=== PATIENT | female | born 1965 | race Caucasian/White ===

== ENCOUNTER 2016-04-09 21:06 | Emergency (ER) | payer OTHER ==
[~2016-04-09] VITALS: Ht 157.5 cm; Wt 82.0 kg
[2016-04-09 21:13] VITALS: Ht 157.5 cm; Wt 82.0 kg
[2016-04-09] MEDS ORDERED: PHENAZOPYRIDINE 100 MG TAB PO ONE (22:30)
[2016-04-09] MEDS ORDERED: HYDROCODONE/APAP (5/325) TAB PO ONE (22:30)
[2016-04-09 22:43] LABS: URINE BLOOD (Dip) POC 2+ (NEGATIVE)
[2016-04-09] MEDS ORDERED: CEFTRIAXONE 1 GM INJ IM ONE (23:00)
[2016-04-09] MEDS ORDERED: LIDOCAINE 1% (MDV) 20 ML INJ SC ONE (23:00)
[2016-04-09] MEDS ORDERED: CIPR500T4 PO (23:25)
[2016-04-09] MEDS ORDERED: HYDR-906 PO (23:25)
[2016-04-09] MEDS ORDERED: PHEN-537 PO (23:25)
--- NOTE | 2016-04-09 23:33 | ERD ---
ER Documentation Chief Complaint Date/Time DATE: 04/09/16 TIME: 23:31 Chief Complaint painful/burning urination x 2 days HPI This is a 50-year-old female presents to the ER with urinary frequency and burning for the last 2 days. Patient also complaining of pain over her bladder. She does admit to chills. She denies fevers. She admits to nausea. She is also complaining of left-sided back pain. Patient denies any hematuria. She denies any trauma to the back. ROS 12 point review of systems was done, all negative except per HPI. Medications Home Meds Active Scripts Hydrocodone/Acetaminophen (Hollywood 5-325 Tablet) 1 Each Tablet, 1 TAB PO Q6H Y for PAIN, #10 TAB Prov:JOSE G SIM C 04/09/16 Phenazopyridine Hcl* (Pyridium*) 100 Mg Tab, 100 MG PO TID Y for URINARY PAIN, # 8 TAB Prov:JENN SIMNA C 04/09/16 Ciprofloxacin Hcl* (Ciprofloxacin Hcl*) 500 Mg Tablet, 500 MG PO BID for 10 Days , TAB Prov:JOSE G SIM C 04/09/16 Allergies Allergies: Coded Allergies: aspirin (Verified Allergy, Unknown, swelling, 04/09/16) PMhx/Soc History of Surgery: Yes (HYSTERECTOMY, BLADDER SX, ) Anesthesia Reaction: No Hx Neurological Disorder: No Hx Respiratory Disorders: No Hx Cardiac Disorders: Yes (HTN) Hx Miscellaneous Medical Probl: Yes (DM ) Hx Alcohol Use: No Hx Substance Use: No Hx Tobacco Use: No Smoking Status: Never smoker Physical Exam Vitals Vital Signs Date Time Temp Pulse Resp B/P Pulse Ox O2 Delivery O2 Flow Rate FiO2 04/09/16 21:13 99.0 101 20 132/77 100 Physical Exam GENERAL: The patient is well developed and appropriate for usual state of health , in no apparent distress. HEENT: Atraumatic. CHEST: Clear to auscultation bilaterally. There are no rales, wheezes or rhonchi. HEART: Regular rate and rhythm. No murmurs, clicks, rubs or gallops. ABDOMEN: Soft, nontender and nondistended. Good bowel sounds. No rebound or guarding. No gross peritonitis. No gross organomegaly or masses. No Alexandra sign or McBurney point tenderness. BACK: No midline or flank tenderness. NEURO: Alert and oriented. Results 24 hrs Laboratory Tests Test 04/09/16 22:45 Bedside Urine Blood 2+ Bedside Urine Glucose (UA) Negative Bedside Urine Ketones (LAB) Negative Bedside Urine Leukocyte Esterase (L 2+ Bedside Urine Nitrite (LAB) Positive Bedside Urine Protein (LAB) 1+ Bedside Urine pH (LAB) 6.0 Current Medications Medications (Trade) Dose Ordered Sig/Larissa Route PRN Reason Start Time Stop Time Status Last Admin Dose Admin Phenazopyridine HCl (Pyridium) 100 mg ONCE ONCE PO 04/09/16 22:30 04/09/16 22:31 DC 04/09/16 23:03 Acetaminophen/ Hydrocodone Bitart (Hollywood (5/325)) 1 tab ONCE ONCE PO 04/09/16 22:30 04/09/16 22:31 DC 04/09/16 23:03 Ceftriaxone Sodium (Rocephin) 1 gm ONCE ONCE IM 04/09/16 23:00 04/09/16 23:01 DC 04/09/16 23:02 Lidocaine (Xylocaine 1% (Mdv) 20 ml) 20 ml ONCE ONCE SC 04/09/16 23:00 04/09/16 23:01 DC 04/09/16 23:02 Procedures/MDM This is a 50-year-old female presents to the ER with urinary frequency and dysuria. Patient did have a significant urinary tract infection on urinalysis. Patient was given a shot of Rocephin as she did have some left-sided back pain. She did have chills and nausea patient may be developing pyelonephritis. Patient is afebrile and well-appearing. [facility] Patient is to follow-up with her primary care doctor within 1-2 days or return to ER sooner if symptoms worsen. By medical decision making sure with the patient she understands and agrees with plan Departure Diagnosis: Primary Impression: UTI (urinary tract infection) Condition: Stable Patient Instructions: Understanding Urinary Tract Infections (UTIs) Additional Instructions: Call your primary care doctor TOMORROW for an appointment during the next 1-2 days.See the doctor sooner or return here if your condition worsens before your appointment time. JOSE G SIM Apr 09, 2016 23:33
[2016-04-09 23:37] VITALS: BP 122/64; PULSE 78; RESP 16; TEMP 98.7
== END 2016-04-09 23:39 | disposition home or self-care (01) ==
LOC: FTE 21:06
DX: N39.0 Urinary tract infection, site not specified (principal); I10 Essential (primary) hypertension; E11.9 Type 2 diabetes mellitus without complications
CPT/HCPCS: 81003; 96372; J0696; Z7502; Z7610

== ENCOUNTER 2016-07-14 10:21 | Emergency (ER) | payer OTHER ==
[~2016-07-14] VITALS: Ht 157.5 cm; Wt 79.0 kg
[~2016-07-14 10:21] MED LIST: CIPR500T4 PO; HYDR-906 PO; PHEN-537 PO
[2016-07-14 10:24] VITALS: Ht 157.5 cm; Wt 79.0 kg
[2016-07-14] MEDS ORDERED: ONDANSETRON (ODT) 4 MG TAB ODT STA (10:56)
[2016-07-14] MEDS ORDERED: HYDROCODONE/APAP (5/325) TAB PO ONE (11:00)
[2016-07-14 11:05] LABS: URINE BLOOD (Dip) POC 3+ (NEGATIVE)
[2016-07-14] MEDS ORDERED: NITR-58 PO (11:48)
[2016-07-14] MEDS ORDERED: HYDR-906 PO (11:48)
--- NOTE | 2016-07-14 11:54 | ERD ---
ER Documentation Chief Complaint Date/Time DATE: 07/14/16 TIME: 11:49 Chief Complaint VB DYSURIA X 1 DAY HPI Patient is a 51-year-old female with a past medical history of diabetes, hypertension, migraine headaches, who presents emergency department with dysuria and a headache 1 day. Patient states she has burning pain with urination. Patient also states that her urine appears darker than usual. Patient does report frequency and urgency. Patient reports localized tenderness to the suprapubic region. Patient denies any fevers, chills, back pain, flank pain or vomiting. Patient also states that she is having a headache. Patient states that she did take her Imitrex yesterday however did not help. Patient states that her current headache does feel like previous headaches. Patient states that her pain has been getting gradually worse. Patient denies any sudden onset of pain. Patient does report nausea however she denies any vomiting. Patient also admits to photophobia and phonophobia. Patient denies any blurry vision, neck stiffness, neck pain or loss of consciousness. No recent trauma or falls. Patient is speaking full sentences. ROS All systems reviewed and are negative except as per history of present illness. Medications Home Meds Active Scripts Hydrocodone/Acetaminophen (Pierz 5-325 Tablet) 1 Each Tablet, 1 TAB PO Q6H Y for PAIN, #7 TAB Prov:DMITRY HELMS PA-C 07/14/16 Nitrofurantoin Monohyd Macrocr* (Macrobid*) 100 Mg Capsr, 100 MG PO BID for 5 Days, CAP Prov:DMITRY HELMS-Simona 07/14/16 Hydrocodone/Acetaminophen (Pierz 5-325 Tablet) 1 Each Tablet, 1 TAB PO Q6H Y for PAIN, #10 TAB Prov:JOSE G SIM 04/09/16 Phenazopyridine Hcl* (Pyridium*) 100 Mg Tab, 100 MG PO TID Y for URINARY PAIN, # 8 TAB Prov:JOSE G SIM C 04/09/16 Ciprofloxacin Hcl* (Ciprofloxacin Hcl*) 500 Mg Tablet, 500 MG PO BID for 10 Days , TAB Prov:JOSE G SIM C 04/09/16 Allergies Allergies: Coded Allergies: aspirin (Verified Allergy, Unknown, swelling, 07/14/16) PMhx/Soc History of Surgery: Yes (HYSTERECTOMY, BLADDER SX, ) Anesthesia Reaction: No Hx Neurological Disorder: No Hx Respiratory Disorders: No Hx Cardiac Disorders: Yes (HTN) Hx Miscellaneous Medical Probl: Yes (DM ) Hx Alcohol Use: No Hx Substance Use: No Hx Tobacco Use: No Smoking Status: Never smoker FmHx Family History: No diabetes Physical Exam Vitals Vital Signs Date Time Temp Pulse Resp B/P Pulse Ox O2 Delivery O2 Flow Rate FiO2 07/14/16 10:24 98.0 111 18 164/70 98 Physical Exam GENERAL: Well-developed, well-nourished female. Appears in no acute distress. HEAD: Normocephalic, atraumatic. EYES: Pupils are equally reactive bilaterally. EOMs grossly intact. No conjunctival erythema. ENT: Moist mucous membranes. No uvula deviation. No kissing tonsils. NECK: Supple. No meningismus. Normal range of motion of the neck. LUNG: Clear to auscultation bilaterally. No rhonchi, wheezing, rales or coarse breath sounds. HEART: Regular rate and rhythm. No murmurs, rubs or gallops. ABDOMEN: No scars, ecchymosis or rashes noted. Soft, nondistended. Tender to palpation in the suprapubic region. Positive bowel sounds in all four quadrants. No rebound tenderness, no guarding. (-) McBurney's point tenderness. No CVA tenderness. BACK: No midline tenderness. EXTREMITIES: Equal pulses bilaterally. No peripheral clubbing, cyanosis or edema. No unilateral leg swelling. SKIN: Normal color. Warm and dry. No rashes or lesions. NEUROLOGIC: Alert and oriented x3, cooperative. Mood and affect appropriate to situation. Cranial nerves II through XII are grossly intact. Normal speech. Motor exam: 5/5 strength in upper and lower extremities. Sensory exam: Sensation intact to light touch on all four extremities. Cerebellar function exam: No dysmetria on [id number] test. Steady gait. No pronator drift. Results 24 hrs Laboratory Tests Test 07/14/16 11:07 Bedside Urine pH (LAB) 5.5 Bedside Urine Protein (LAB) 1+ Bedside Urine Glucose (UA) 0.50% Bedside Urine Ketones (LAB) Negative Bedside Urine Blood 3+ Bedside Urine Nitrite (LAB) Negative Bedside Urine Leukocyte Esterase (L 2+ Current Medications Medications (Trade) Dose Ordered Sig/Larissa Route PRN Reason Start Time Stop Time Status Last Admin Dose Admin Acetaminophen/ Hydrocodone Bitart (Pierz (5/325)) 1 tab ONCE ONCE PO 07/14/16 11:00 07/14/16 11:01 DC 07/14/16 11:05 Ondansetron HCl (Zofran Odt) 4 mg ONCE STAT ODT 07/14/16 10:56 07/14/16 10:57 DC 07/14/16 11:06 Procedures/MDM MEDICAL DECISION MAKING: This is a 51-year-old female with a history of diabetes, hypertension, migraine headaches who presents to the emergency department with dysuria, frequency and urgency 1 day.. Vital signs were reviewed. Patient was afebrile. Urine dip showed 2+ leukocyte esterase and 3+ blood. Given these findings, the patient's presentation is most consistent with urinary tract infection. I have a much lower clinical concern for pyelonephritis, nephrolithiasis, appendicitis, diverticulitis, constipation, PID. Also patient stated she was having a migraine headache. Patient states she took her Imitrex with no alleviation of symptoms. She reported nausea, photophobia and phonophobia. Patient denies any blurry vision, loss of consciousness or trauma. Full neurological exam was normal. Patient requested pain medication here in the ED. Patient was given a Pierz as well as Zofran. Patient did report improvement in pain. At this time , the patient's presentation is most consistent with migraine headaches. Low suspicion for intracranial hemorrhage, intracranial mass, meningitis, encephalitis, temporal arteritis, benign intracranial hypertension, cluster headache. PRESCRIPTIONS: Macrobid, Pierz DISCHARGE: At this time, patient is stable for discharge and outpatient management. Patient advised to complete full course of antibiotics. I have encouraged the patient to hydrate well. I have instructed the patient to follow-up with his/ her primary care physician in 1-2 days. If symptoms persist, patient may need to see a specialist for further examinations and testing. I have instructed the patient to promptly return to the ER at any time for any new or worsening symptoms including increased increased pain, fever, nausea, vomiting, numbness, neck stiffness, visual changes, weakness or LOC. The patient and/or family expressed understanding of and agreement with this plan. All questions were answered. Home care instructions were provided. Departure Diagnosis: Primary Impression: UTI (urinary tract infection) Urinary tract infection type: site unspecified Hematuria presence: with hematuria Qualified Code: N39.0 - Urinary tract infection with hematuria, site unspecified Additional Impression: Migraine Migraine type: unspecified Status migrainosus presence: without status migrainosus Intractability: not intractable Qualified Code: G43.909 - Migraine without status migrainosus, not intractable, unspecified migraine type Condition: Stable Patient Instructions: Understanding Urinary Tract Infections (UTIs) Referrals: [facility] Additional Instructions: Call your primary care doctor TOMORROW for an appointment during the next 1-2 days.See the doctor sooner or return here if your condition worsens before your appointment time. DMITRY HELMS PA-C July 14, 2016 11:54 Additional Instructions: Call your primary care doctor TOMORROW for an appointment during the next 1-2 days.See the doctor sooner or return here if your condition worsens before your appointment time. DMITRY HELMS PA-C July 14, 2016 11:54
== END 2016-07-14 12:51 | disposition home or self-care (01) ==
LOC: FTE 10:21
DX: N39.0 Urinary tract infection, site not specified (principal); I10 Essential (primary) hypertension; E11.9 Type 2 diabetes mellitus without complications; G43.909 Migraine, unspecified, not intractable, without status migrainosus; R11.0 Nausea
CPT/HCPCS: 81003; Z7502; Z7610; 99284

== ENCOUNTER 2016-11-12 13:56 | Emergency (ER) | payer OTHER ==
[~2016-11-12] VITALS: Wt 91.0 kg
[~2016-11-12 13:56] MED LIST changes: +NITR-58 PO
[2016-11-12] MEDS ORDERED: KETOROLAC 30 MG INJ IM STA (14:21)
--- NOTE | 2016-11-12 14:51 | RADRPT ---
PROCEDURE: XR foot CLINICAL INDICATION: Pain and swelling. TECHNIQUE: AP, oblique and lateral views of the left foot were performed. COMPARISON: None. FINDINGS: There is normal mineralization and alignment. No fracture or osseous lesion is identified. The joint s are normal. Mild soft tissue swelling is present. There is no ankle effusion. IMPRESSION: No fracture, dislocation or osseous abnormality. Mild soft tissue swelling. RPTAT: PP. .Rachel Iverson MD, MD Date Time Electronically viewed and signed by .Rachel Iverson MD, MD on 11/12/2016 14:51 .F/
--- NOTE | 2016-11-12 14:53 | ERD ---
ER Documentation Chief Complaint Date/Time DATE: 11/12/16 TIME: 14:47 Chief Complaint FOOT PAIN SINCE THIS AM HPI This a 51-year-old female who presents the emergency department today complaining of left foot pain and swelling that started this morning when she woke up. Denies any trauma. States she does have a history of diabetes. She is she is taking Tylenol for pain but is having pain with walking. Denies any fevers or chills. ROS All systems reviewed and are negative except as per history of present illness. Medications Home Meds Active Scripts Naproxen* (Naprosyn*) 500 Mg Tablet, 500 MG PO BID Y for PAIN AND/OR INFLAMMATION, #30 TAB Prov:DUSTIN VERA PA-C 11/12/16 Tramadol HCl (Tramadol HCl) 50 Mg Tablet, 50 MG PO Q4 Y for PAIN, #20 TAB Prov:DUSTIN VERA PA-C 11/12/16 Hydrocodone/Acetaminophen (Snowshoe 5-325 Tablet) 1 Each Tablet, 1 TAB PO Q6H Y for PAIN, #7 TAB Prov:DMITRY HELMS PA-C 07/14/16 Nitrofurantoin Monohyd Macrocr* (Macrobid*) 100 Mg Capsr, 100 MG PO BID for 5 Days, CAP Prov:DMITRY HELMS PA-C 07/14/16 Hydrocodone/Acetaminophen (Snowshoe 5-325 Tablet) 1 Each Tablet, 1 TAB PO Q6H Y for PAIN, #10 TAB Prov:JOSE G SIM 04/09/16 Phenazopyridine Hcl* (Pyridium*) 100 Mg Tab, 100 MG PO TID Y for URINARY PAIN, # 8 TAB Prov:JOSE G SIM 04/09/16 Ciprofloxacin Hcl* (Ciprofloxacin Hcl*) 500 Mg Tablet, 500 MG PO BID for 10 Days , TAB Prov:JOSE G SIM 04/09/16 Allergies Allergies: Coded Allergies: aspirin (Verified Allergy, Unknown, swelling, 07/14/16) PMhx/Soc History of Surgery: Yes (HYSTERECTOMY, BLADDER SX, ) Anesthesia Reaction: No Hx Neurological Disorder: No Hx Respiratory Disorders: No Hx Cardiac Disorders: Yes (HTN) Hx Miscellaneous Medical Probl: Yes (DM, Migraines) Hx Alcohol Use: No Hx Substance Use: No Hx Tobacco Use: No Smoking Status: Never smoker Physical Exam Vitals Vital Signs Date Time Temp Pulse Resp B/P Pulse Ox O2 Delivery O2 Flow Rate FiO2 11/12/16 14:02 98.1 112 18 136/83 99 Physical Exam Const: NAD Head: Atraumatic Eyes: Normal Conjunctiva ENT: Normal External Ears, Nose and Mouth. Neck: Full range of motion..~ No meningismus. Resp: Clear to auscultation bilaterally Cardio: Regular rate and rhythm, no murmurs Skin: No petechiae or rashes MSK: Left foot with no obvious deformity. Moderate effusion diffusely over dorsal aspect of foot. Full active range of motion of ankle. No erythema or warmth. Tenderness palpation plantar Aspect of calcaneus Neur: Awake and alert Psych: Normal Mood and Affect Results 24 hrs Current Medications Medications (Trade) Dose Ordered Sig/Larissa Route PRN Reason Start Time Stop Time Status Last Admin Dose Admin Ketorolac Tromethamine (Toradol) 30 mg ONCE STAT IM 11/12/16 14:21 11/12/16 14:24 DC 11/12/16 14:31 DIAGNOSTIC IMAGING REPORT Patient: SÁNCHEZ BROWN : 1965 Age: 51 Sex: F MR #: [id number] DOS: 11/12/16 0000 Ordering MD: DUSTIN VERA PA-C Location: [facility] Room/Bed: PROCEDURE: XR foot CLINICAL INDICATION: Pain and swelling. TECHNIQUE: AP, oblique and lateral views of the left foot were performed. COMPARISON: None. FINDINGS: There is normal mineralization and alignment. No fracture or osseous lesion is identified. The joints are normal. Mild soft tissue swelling is present. There is no ankle effusion. IMPRESSION: No fracture, dislocation or osseous abnormality. Mild soft tissue swelling. RPTAT: PP. .Rachel Iverson MD, Date Time Electronically viewed and signed by .Rachel Iverson MD, on 11/12/2016 14:51 .F/ CC: DUSTIN VERA PA-C Procedures/MDM This 51-year-old female presents emergency department today complaining of left foot pain and swelling that started when she woke up this morning. Patient is afebrile and otherwise well-appearing however she did have diffuse swelling over the dorsal aspect of her left foot. She did have tenderness at the plantar fascial insertion of her calcaneus. Given patient's amount of swelling and history of diabetes I did obtain images. Per the radiology report images of the left foot show no fracture, dislocation or osseous abnormality. There is mild soft tissue swelling. There is no ankle effusion. Joints are normal. I did give the patient Toradol here in the emergency department as she has taken ibuprofen in the past with no negative reactions or allergic reactions, Despite the patient indicating that she has an aspirin allergy. Patient was driving herself and therefore did not want to give her Snowshoe. Patient is afebrile and otherwise well-appearing. She does have full active range of motion at her ankle and when she blows her ankle she reports the pain is on the bottom of her foot and of low suspicion for septic joint or gout. There is no erythema or warmth. Patient symptoms at this time is consistent with foot pain and swelling possibly related to plantar fascial pain given the location of the patient's pain. Patient was given a prescription for short course of tramadol, Naprosyn and was given an Stephen wrap for compression and crutches to help ambulate. At this time the patient is stable for discharge and outpatient management. Patient should follow up with their PCP in the next 1-2 days. They may return to the emergency department sooner for any persistent or worsening of symptoms. Patient understood and agreed with the plan. Dr. Melendez has seen and evaluated the patient and is in agreement with the plan. Departure Diagnosis: Primary Impression: Foot pain Laterality: left Qualified Code: M79.672 - Left foot pain Condition: Fair DUSTIN VERA PA-C Nov 12, 2016 14:53
[2016-11-12] MEDS ORDERED: TRAM50TA2 PO (15:06)
[2016-11-12] MEDS ORDERED: NAPR-260 PO (15:07)
== END 2016-11-12 15:30 | disposition home or self-care (01) ==
LOC: FTE 13:56
DX: M79.672 Pain in left foot (principal); I10 Essential (primary) hypertension; E11.9 Type 2 diabetes mellitus without complications
CPT/HCPCS: 73630; 96372; J1885; Z7502